=== PATIENT | male | born 1955 | race African-American/Black ===

== ENCOUNTER 2017-08-29 17:26 | Emergency (ER) | payer MEDICAID ==
[~2017-08-29] VITALS: Ht 170.2 cm; Wt 77.0 kg
[2017-08-29] MEDS ORDERED: LOSA50TA20 PO (17:41)
[2017-08-29] MEDS ORDERED: KETOROLAC 30MG/ML VIAL IM ONE (23:45)
[2017-08-30 01:00] VITALS: BP 166/79
== END 2017-08-30 02:00 | disposition home or self-care (01) ==
LOC: ER 17:26
DX: M25.462 Effusion, left knee (principal); I10 Essential (primary) hypertension; H40.9 Unspecified glaucoma; E11.9 Type 2 diabetes mellitus without complications; Z87.891 Personal history of nicotine dependence
CPT/HCPCS: 73562; 96372; 99284; J1885

== ENCOUNTER 2019-08-28 20:48 | Emergency (ER) | payer MEDICAID ==
[~2019-08-28] VITALS: Ht 175.3 cm; Wt 75.0 kg
[~2019-08-28 20:48] MED LIST: LOSA50TA41 PO
[2019-08-28 21:08] VITALS: BP 188/87
== END 2019-08-29 00:30 | disposition left against medical advice (07) ==
LOC: ER 20:48
DX: Z53.21 Procedure and treatment not carried out due to patient leaving prior to being seen by health care provider (principal); R42 Dizziness and giddiness
CPT/HCPCS: 93005; Z7610